=== PATIENT | female | born 1930 | race Caucasian/White ===

== ENCOUNTER 2018-08-12 11:27 | Emergency (ER) | payer MEDICARE, BC ==
[2018-08-12] MEDS ORDERED: EPINEPHrine 1:10,000 1 MG/10 ML Syringe IV ONE (11:28)
--- NOTE | 2018-08-12 11:50 | EDM.PDOC ---
ED HPI GENERAL MEDICAL PROBLEM - General Chief Complaint: CPR in Progress Stated Complaint: CPR Time Seen by Provider: 08/12/18 11:48 Source of Information: Reports: EMS, Family, Long-Term Records History Limitations: Reports: Other (Cardiac Arrest) - History of Present Illness INITIAL COMMENTS - FREE TEXT/NARRATIVE: Patient is an 88 year old female that arrives to the ER via EMS. It is reported to me by EMS that patient went to [facility] this morning. Then staff was not with the patient for 15 minutes, then family discovered the patient at 1055am, unknown amount of down time. When EMS arrived, patient was Asystole and not breathing. BLS crew. Patient arrives to the ER, Sandor tube in place with good placement by auscultation. Ernie in place giving CPR. Accucheck obtained at arrival >200. At arrival IV placed, 1mg Epi given at arrival. Ernie was paused to recheck rhythm, ASYSTOLE. Patient had been down for known 35 minutes in Asystole and respiratory arrest. [facility] consulted and agree to discontinue the code. Code discontinued and patient pronounced at 11:32am. Discussed patient with the family. Family reports that last night patient looked a little blue in her hands and pale. They report that last night the patient reported she wasnt feeling very well. Family did not see the patient today until their arrival at 1055am and found the patient unresponsive. Onset: Today Onset Date: 08/12/18 Onset Time: 10:55 ED ROS GENERAL - Review of Systems Review Of Systems: Unable To Obtain ED EXAM, GENERAL - Physical Exam Exam: See Below Exam Limited By: Other (Cardiac Arrest) General Appearance: Other (Lifeless ) Eye Exam: Bilateral Eye: Other (Fixed, dilated. ) Ears: Normal External Exam Ear Exam: Bilateral Ear: Auricle Normal Nose: Normal Inspection Throat/Mouth: Other (Sandor tube in place) Head: Atraumatic Respiratory/Chest: Other (Respiratory Arrest: Sandor tube in place, good placement confirmed with auscultation. ) Cardiovascular: Other (Asystole) Peripheral Pulses: 0: Carotid (L), Carotid (R), Radial (L), Radial (R), Femoral (L), Femoral (R), Posterior Tibial (L), Posterior Tibial (R) GI/Abdominal: Distended, Other (Eccyhmosis) Extremities: Mottled Neurological: Unresponsive Skin Exam: Cool, Cyanosis, Ecchymosis (abdomen RLQ, LLQ. ) Departure - Departure Time of Disposition: 11:32 Disposition: 20 Preliminary Cause of *Q: Cardiac Arrest Clinical Impression: Cardiac arrest Forms: ED Department Discharge - Assessment/Plan Plan: PLEASE SEE RN NOTE FOR PFSH.
== END 2018-08-12 14:36 | disposition expired ==
LOC: CC.ED 11:27
DX: I46.9 Cardiac arrest, cause unspecified (principal)
CPT/HCPCS: 92950; 96374; 99283; 99284-25; J0171